=== PATIENT | male | born 1980 | race Caucasian/White ===

== ENCOUNTER 2020-09-29 12:22 | Emergency (ER) | payer OTHER ==
[2020-09-29 12:35] VITALS: BP 122/66; PULSE 88; RESP 16; TEMP 98.5
--- NOTE | 2020-09-29 12:53 | ED ---
Animal Bite HPI - General Chief Complaint: Animal Bite Stated Complaint: Dog bite/[facility] Time Seen by Provider: 09/29/20 12:36 Source: patient Mode of arrival: ambulatory Limitations: no limitations - History of Present Illness Initial Comments: 40-year-old male presents to the emergency department with a chief complaint of a dog bite. States this occurred earlier today by ruth. Patient reports the bite was on his right thigh. Patient reports the injury site is tender to touch. Tetanus is not up-to-date. Denies any numbness or tingling. Reports full range of motion in the right leg. - Related Data Allergies Allergy/AdvReac Type Severity Reaction Status Date / Time Iodinated Contrast Media AdvReac Swelling Verified 09/29/20 12:32 iodine AdvReac Swelling Verified 09/29/20 12:32 Review of Systems ROS Statement: Those systems with pertinent positive or pertinent negative responses have been documented in the HPI. ROS Other: All systems not noted in ROS Statement are negative. Past Medical History Past Medical History: No Reported History History of Any Multi-Drug Resistant Organisms: None Reported Past Surgical History: Hernia Repair Past Psychological History: No Psychological Hx Reported Smoking Status: Never smoker Past Alcohol Use History: None Reported Past Drug Use History: None Reported General Exam Limitations: no limitations General appearance: alert, in no apparent distress Head exam: Present: atraumatic, normocephalic, normal inspection Eye exam: Present: normal appearance, PERRL, EOMI Pupils: Present: normal accommodation ENT exam: Present: normal exam, normal oropharynx, mucous membranes moist Neck exam: Present: normal inspection, full ROM. Absent: tenderness Respiratory exam: Present: normal lung sounds bilaterally. Absent: respiratory distress Cardiovascular Exam: Present: regular rate, normal rhythm, normal heart sounds GI/Abdominal exam: Present: soft. Absent: distended, tenderness, guarding Extremities exam: Present: full ROM, tenderness (Tenderness at the injury site), normal capillary refill. Absent: normal inspection (Multiple puncture wounds noted on the lateral aspect of the right thigh.), pedal edema, joint swelling, calf tenderness Back exam: Present: normal inspection, full ROM. Absent: tenderness, CVA tenderness (R), CVA tenderness (L) Neurological exam: Present: alert, oriented X3 Psychiatric exam: Present: normal affect, normal mood Skin exam: Present: warm, dry, intact, normal color Course Vital Signs 09/29/20 12:33 Temperature 98.5 F Pulse Rate 88 Respiratory 16 Rate Blood Pressure 122/66 O2 Sat by Pulse 97 Oximetry Procedures - Laceration Laceration #1 Consent Obtained: verbal consent Indication: laceration Site: lower extremity Size (cm): 2 Description: linear, clean Depth: simple, single layer Sedation/Analgesia: none Pre-repair: irrigated extensively, deep structures intact Type of Sutures: vicryl Size of Sutures: 4-0 Number of Sutures: 1 Technique: simple, interrupted Patient Tolerated Procedure: well, no complications Medical Decision Making - Medical Decision Making 40-year-old male presents to the emergency department with a chief but that by. On physical examination, there is multiple puncture wounds noted on the lateral aspect of her right thigh. They were thoroughly irrigated with saline. There is 1 of the laceration was approximately 2 cm. I was able to approximate the wound. Did not fully perform laceration repair. We'll start the patient on Augmentin. Tetanus was administered here as well. The dog has vaccinations up-to-date. Return parameters discussed the patient was understanding and agreeable. Case discussed with Dr. Kim Disposition Clinical Impression: Bite by animal, Dog bite, Laceration, Puncture wound Disposition: HOME SELF-CARE Condition: Stable Instructions (If sedation given, give patient instructions): Animal Bite (ED) Additional Instructions: Take prescribed medication as directed. Return to emergency department if symptoms worsen. Is patient prescribed a controlled substance at d/c from ED?: No Referrals: None,Stated [Primary Care Provider] - 1-2 days Time of Disposition: 13:15
[2020-09-29] MEDS ORDERED: DIPH,PERTUS(ACELL)TETVAC-LF 0.5 ML VIAL IM ONE (13:03)
[2020-09-29] MEDS ORDERED: AMOXIC-POT CLAV 875MG STARTER PACK 2 TAB BTL PO STA (13:04)
== END 2020-09-29 13:33 | disposition home or self-care (01) ==
LOC: EC 12:22
DX: S71.111A Laceration without foreign body, right thigh, initial encounter (principal); Z91.041 Radiographic dye allergy status; Z23 Encounter for immunization; W54.0XXA Bitten by dog, initial encounter; Y92.69 Other specified industrial and construction area as the place of occurrence of the external cause; Y99.0 Civilian activity done for income or pay
CPT/HCPCS: 12001; 90471; 90715; 99283